=== PATIENT | female | born 1980 | race American Indian/Alaskan Native ===

== ENCOUNTER 2016-06-27 12:58 | Emergency (ER) | payer OTHER ==
--- NOTE | 2016-06-27 16:24 | Emergency Department Report ---
HPI - General Chief Complaint: Tube Replacement Time Seen by Provider: 06/27/16 15:57 - HPI HPI: This is a 35-year-old Afro[place] female who presents to the emergency department, sent in by EMS from her senior care, for a PEG tube placement and urinalysis. The senior care and stated that the urine has a foul odor. The patient wears a diaper. The patient's was here earlier and had stated that the PEG tube and been out for about 1 hour prior to presentation. Patient has a trach and PEG secondary to a CVA, as well as some hypertension. Patient is immobile and nonverbal at baseline. ED Past Medical Hx - Past Medical History Previous Medical History?: Yes Hx Hypertension: Yes Hx CVA: Yes Additional medical history: trach/peg - Surgical History Past Surgical History?: Yes Additional Surgical History: peg/trach - Social History Smoking Status: Never Smoker Substance Use Type: None ED Review of Systems ROS: Stated complaint: LAB WORK Other details as noted in HPI Comment: Unobtainable due to pts medical conditions Physical Exam - Physical Exam Vital Signs: Vital Signs 06/27/16 02 15:29 15:49 Temperature 98.0 F Pulse Rate 87 Respiratory 20 20 Rate Blood Pressure 129/100 [Right] O2 Sat by Pulse 100 2 L Oximetry Physical Exam: GENERAL: The patient is well-developed well-nourished. HEENT: Normocephalic. Atraumatic. Patient has moist mucous membranes. NECK: Supple. Trachea is midline. Trach and collar in place. CHEST/LUNGS: Coarse breath sounds throughout the chest. No tachypnea or accessory muscle use. There is no respiratory distress noted. HEART/CARDIOVASCULAR: Regular. There is no tachycardia. There is no gallop rub or murmur. ABDOMEN: Abdomen is soft, nontender. Patient has normal bowel sounds. There is no abdominal distention. There is a PEG tube in place in the upper mid abdomen. SKIN: There is no rash. Warm and dry. NEURO: Patient is immobile and nonverbal at baseline. MUSCULOSKELETAL: There is no acute deformity. There is no evidence of acute injury. ED Course Vital Signs 06/27/16 02 15:29 15:49 Temperature 98.0 F Pulse Rate 87 Respiratory 20 20 Rate Blood Pressure 129/100 [Right] O2 Sat by Pulse 100 2 L Oximetry - Feeding Tube Replacement Reason for Replacement: not functioning/damaged Initial Tube Inserted: greater than 4 weeks Type of Tube: gastrostomy Use of Tube: medications and feeding Insertion Site Prior to Procedure: clean Tube Used for Reinsertion: MARITZA Israeli Tube Size (F): 24 Balloon Size (mls): 10 Verification of Placement: gastrograffin injection Tube Secured by: tape/dressing Patient Tolerated Procedure: well ED Medical Decision Making - Medical Decision Making 35-year-old female who is chronically debilitated from previous CVA presents from senior care for a replacement of her PEG tube and to check the urine for a urinary tract infection. The PEG tube was successfully replaced into a 24 Israeli MARITZA tube per the procedure note. A straight cath was done and urine was obtained but there was no signs of a urinary tract infection. Patient will be discharged back to her senior care to restart and continue her medications and treatments. As always, encouraged to see the primary care physician and return to the emergency department with any acute distress. - Differential Diagnosis UTI, PEG tube malfunction, obstruction Critical care attestation.: If time is entered above; I have spent that time in minutes in the direct care of this critically ill patient, excluding procedure time. ED Disposition Clinical Impression: PEG tube malfunction Disposition: DISCHARGED TO HOME OR SELFCARE Is pt being admited?: No Does the pt Need Aspirin: No Condition: Stable Instructions: How to Use and Care for Your PEG Tube (ED) Additional Instructions: The PEG tube has been replaced with a 24 Israeli MARITZA tube. Please follow-up with the primary care doctors as necessary. Return to the emergency department with any acute distress. Referrals: PRIMARY CARE, [Primary Care Provider] - 3-5 Days Time of Disposition: 18:28
[2016-06-27] MEDS ORDERED: WATER FOR INJ (PF) 10 ML ONE (16:55)
[2016-06-27 18:10] LABS: Bilirubin,Urine NEG (Negative); Blood,Urine NEG (Negative); Ketones,Urine NEG (Negative); Leukocyte Esterase,Urine NEG (Negative); Mucus,Urine FEW /HPF; Nitrite,Urine NEG (Negative)
[2016-06-27 20:03] VITALS: BP 130/99
--- NOTE | 2016-06-28 08:40 | XRay Report ---
X-RAY G-TUBE STUDY: 06/27/16 17:06:00 CLINICAL: Assess position of the G-tube. COMPARISON: None. FINDINGS: A small volume of Gastroview was injected through the G-tube. Contrast is identified in the stomach and G-tube is in satisfactory position. No extravasation. IMPRESSION: Satisfactory position of the G-tube.
== END 2016-06-27 21:00 | disposition home or self-care (01) ==
LOC: ED 12:58
DX: K94.23 Gastrostomy malfunction (principal); I10 Essential (primary) hypertension; Z86.73 Personal history of transient ischemic attack (TIA), and cerebral infarction without residual deficits
CPT/HCPCS: 74000; 81001; Q9963